=== PATIENT | female | born 1930 | race Caucasian/White ===

== ENCOUNTER 2017-06-14 10:01 | Observation (INO) | payer MEDICARE, OTHER ==
[~2017-06-14] VITALS: Ht 157.5 cm; Wt 54.3 kg
[2017-06-14 10:06] VITALS: BP 145/73; PULSE 79; RESP 16; TEMP 97.7; O2SAT 98
[2017-06-14] MEDS ORDERED: SODIUM CHLORIDE 0.9% FLUSH 10 ML FLUSH IV FLUSH PRN ×2 (11:00→17:00)
--- NOTE | 2017-06-14 11:04 | PD ---
HPI Chief Complaint: GI Complaint Time Seen by Provider: 11:00 Travel History International Travel<30 days: No Contact w/Intl Traveler<30days: No Traveled to known affect area: No History of Present Illness HPI 86-year-old female patient with history of hiatal hernia, complicated by hernia the stomach into the thoracic cavity, had bowel that was trapped and ended up having resection of the bowel, has had her stomach pulled down below the hernia site, is here today because she states that over the last 3 days she feels like things are getting stuck in her esophagus, is able to drink okay but feels like solid food is not going down, and she has to make herself gag to bring it back up. She denies any difficulty breathing, chest pains, or any other issues. Modifying Factors: None Associated Signs & Symptoms: Difficulty swallowing solids, no problems with liquids Risk Factors: Previous stomach surgery, hiatal hernia PFSH Social History Tobacco Use: No Allergies-Medications (Allergen,Severity, Reaction): Coded Allergies: No Known Allergies (Verified Allergy, Unknown, 06/14/17) Reported Meds & Prescriptions Reported Meds & Active Scripts Active Reported Vitamin D-1000 (Cholecalciferol) 1,000 Unit Tab 1,000 Units PO DAILY Aspir-81 (Aspirin) 81 Mg Tabdr Oxybutynin ER 24 HR (Oxybutynin Chloride) 10 Mg Tab 10 Mg PO DAILY Klor-Con 10 (Potassium Chloride) 10 Meq Tab 10 Meq PO DAILY Atorvastatin (Atorvastatin Calcium) 20 Mg Tab 20 Mg PO HS Amlodipine (Amlodipine Besylate) 10 Mg Tab 10 Mg PO DAILY Review of Systems Except as stated in HPI: all other systems reviewed are Neg Physical Exam Narrative GENERAL: Well-developed elderly female patient currently and mild distress. Awake and oriented 3. SKIN: Focused skin assessment warm/dry. HEAD: Atraumatic. Normocephalic. EYES: Pupils equal and round. No scleral icterus. No injection or drainage. ENT: No nasal bleeding or discharge. Mucous membranes pink and moist. NECK: Trachea midline. No JVD. CARDIOVASCULAR: Regular rate and rhythm. No murmur appreciated. RESPIRATORY: No accessory muscle use. Clear to auscultation. Breath sounds equal bilaterally. GASTROINTESTINAL: Abdomen soft, non-tender, nondistended. Hepatic and splenic margins not palpable. MUSCULOSKELETAL: No obvious deformities. No clubbing. No cyanosis. No edema. NEUROLOGICAL: Awake and alert. No obvious cranial nerve deficits. Motor grossly within normal limits. Normal speech. PSYCHIATRIC: Appropriate mood and affect; insight and judgment normal. Data Data Last Documented VS Vital Signs Date Time Temp Pulse Resp B/P (MAP) Pulse Ox O2 Delivery O2 Flow Rate FiO2 06/14/17 11:08 98 Room Air 06/14/17 10:06 97.7 79 16 145/73 (97) Orders Orders Complete Blood Count With Diff (06/14/17 11:00) Comprehensive Metabolic Panel (06/14/17 11:00) Lipase (06/14/17 11:00) Abdomen, Flat & Upright (06/14/17 ) Iv Access Insert/Monitor (06/14/17 11:00) Ecg Monitoring (06/14/17 11:00) Oximetry (06/14/17 11:00) Sodium Chloride 0.9% Flush (Ns Flush) (06/14/17 11:00) Electrocardiogram (06/14/17 11:00) Chest, Single Ap (06/14/17 11:00) Sodium Chlorid 0.9% 500 Ml Inj (Ns 500 M (06/14/17 12:00) Admit Order (Ed Use Only) (06/14/17 13:34) Labs Laboratory Tests Test 06/14/17 12:11 White Blood Count 6.3 TH/MM3 Red Blood Count 4.55 MIL/MM3 Hemoglobin 13.4 GM/DL Hematocrit 40.0 % Mean Corpuscular Volume 87.9 FL Mean Corpuscular Hemoglobin 29.5 PG Mean Corpuscular Hemoglobin Concent 33.6 % Red Cell Distribution Width 13.4 % Platelet Count 167 TH/MM3 Mean Platelet Volume 8.8 FL Neutrophils (%) (Auto) 76.1 % Lymphocytes (%) (Auto) 15.2 % Monocytes (%) (Auto) 7.1 % Eosinophils (%) (Auto) 0.8 % Basophils (%) (Auto) 0.8 % Neutrophils # (Auto) 4.7 TH/MM3 Lymphocytes # (Auto) 1.0 TH/MM3 Monocytes # (Auto) 0.4 TH/MM3 Eosinophils # (Auto) 0.1 TH/MM3 Basophils # (Auto) 0.1 TH/MM3 CBC Comment DIFF FINAL Differential Comment Blood Urea Nitrogen 11 MG/DL Creatinine 0.67 MG/DL Random Glucose 83 MG/DL Total Protein 7.0 GM/DL Albumin 3.5 GM/DL Calcium Level 9.1 MG/DL Alkaline Phosphatase 58 U/L Aspartate Amino Transf (AST/SGOT) 18 U/L Alanine Aminotransferase (ALT/SGPT) 15 U/L Total Bilirubin 2.3 MG/DL Sodium Level 143 MEQ/L Potassium Level 3.2 MEQ/L Chloride Level 107 MEQ/L Carbon Dioxide Level 22.4 MEQ/L Anion Gap 14 MEQ/L Estimat Glomerular Filtration Rate 84 ML/MIN Lipase 59 U/L [place] Medical Decision Making Medical Screen Exam Complete: Yes Emergency Medical Condition: Yes Medical Record Reviewed: Yes Interpretation(s) Laboratory Tests Test 06/14/17 12:11 Neutrophils (%) (Auto) 76.1 % (16.0-70.0) Total Bilirubin 2.3 MG/DL (0.2-1.0) Potassium Level 3.2 MEQ/L (3.5-5.1) Estimat Glomerular Filtration Rate 84 ML/MIN (>89) Lipase 59 U/L (73-393) Last 24 hours Impressions Chest X-Ray 06/14/17 1100 Signed Impressions: Service Date/Time: Wednesday, June 14, 2017 11:16 - CONCLUSION: No acute disease. Davy Coffey MD Abdomen X-Ray 06/14/17 0000 Signed Impressions: Service Date/Time: Wednesday, June 14, 2017 11:16 - CONCLUSION: No acute abnormality. Davy Coffey MD Differential Diagnosis Difficulty swallowing solid food: Dysphasia versus food impaction versus esophageal strictures versus hiatal hernia Narrative Course X-rays did not show any signs of hiatal hernia. However, her lab work was fairly unremarkable. However, patient is not able to eat solid foods, feels like he has to gag it up, and the case was discussed with field party manager Dr. Bales who would like to get the patient scoped today, wants the patient to be medically admitted. Case was discussed with Dr. Veliz for admission. N.p.o. Diagnosis Primary Impression: Dysphagia Admitting Information Admitting Physician Requests: Admit Masha Castellon MD Jun 14, 2017 11:04
[2017-06-14 11:08] VITALS: O2SAT 98
[2017-06-14] MEDS ORDERED: AMLO10TA2 PO (11:12)
[2017-06-14] MEDS ORDERED: VITA1000 PO (11:12)
[2017-06-14] MEDS ORDERED: OXYB10TA PO (11:12)
[2017-06-14] MEDS ORDERED: KLOR10TA PO (11:12)
[2017-06-14] MEDS ORDERED: ASPI81TA81 (11:12)
[2017-06-14] MEDS ORDERED: ATOR20TA15 PO (11:12)
--- NOTE | 2017-06-14 11:35 | RADRPT ---
EXAM DATE/TIME: 06/14/2017 11:16 [facility] COMPARISON: No previous studies available for comparison. INDICATIONS : Difficulty swallowing. Abdominal pain MEDICAL HISTORY : Hypertension. Hiatal hernia. SURGICAL HISTORY : Cholecystectomy. Colon resection. ENCOUNTER: Initial ACUITY: 3 days PAIN SCORE: 0/10 LOCATION: Abdomen FINDINGS: Supine and upright views of the abdomen were performed. The abdominal bowel gas pattern is normal. No air fluid levels are seen. No abnormal masses, calcifications, or organomegaly is seen. The visu alized lower lungs are clear. No evidence of free intraperitoneal gas. No scoliosis. Cholecystectomy . CONCLUSION: No acute abnormality. Davy Coffey MD on June 14, 2017 at 11:29 Board Certified Radiologist. This report was verified electronically.
--- NOTE | 2017-06-14 11:35 | RADRPT ---
EXAM DATE/TIME: 06/14/2017 11:16 [facility] COMPARISON: No previous studies available for comparison. INDICATIONS : Difficulty swallowing. Chest pain MEDICAL HISTORY : Hypertension. Hiatal hernia. SURGICAL HISTORY : Cholecystectomy. Colon resection. ENCOUNTER: Initial ACUITY: 3 days PAIN SCORE: 4/10 LOCATION: chest FINDINGS: A single view of the chest demonstrates the lungs to be symmetrically aerated without evidence of mas s, infiltrate or effusion. The cardiomediastinal contours are unremarkable. Osseous structures are intact. Dextroscoliosis. CONCLUSION: No acute disease. Davy Coffey MD on June 14, 2017 at 11:33 Board Certified Radiologist. This report was verified electronically.
[2017-06-14] MEDS ORDERED: SODIUM CHLORID 0.9% 500 ML INJ 500 ML IV ONE (12:00)
[2017-06-14 13:00] LABS: CHLORIDE 107 MEQ/L (98-107); SODIUM (NA) 143 MEQ/L (136-145)
[2017-06-14 13:04] LABS: ALBUMIN 3.5 GM/DL (3.4-5.0); BICARBONATE 22.4 MEQ/L (21.0-32.0); CALCIUM 9.1 MG/DL (8.5-10.1)
[2017-06-14 13:05] LABS: BLOOD UREA NITROGEN 11 MG/DL (7-18); GLUCOSE,RANDOM 83 MG/DL (74-106)
[2017-06-14 13:07] LABS: ALT (GPT) 15 U/L (10-53); AST (GOT) 18 U/L (15-37); CREATININE 0.67 MG/DL (0.50-1.00); GLOMERULAR FILTRATION RATE 84 ML/MIN (>89)
[2017-06-14 13:09] LABS: TOTAL BILIRUBIN ADULT 2.3 MG/DL (0.2-1.0)
[2017-06-14 13:10] LABS: ALKALINE PHOSPHATASE 58 U/L (45-117)
[2017-06-14 13:15] LABS: AUTOMATED NEUTROPHIL # 4.7 TH/MM3 (1.8-7.7); BASOPHIL # 0.1 TH/MM3 (0-0.2); BASOPHIL % 0.8 % (0.0-2.0); EOSINOPHIL # 0.1 TH/MM3 (0-0.4); EOSINOPHIL % 0.8 % (0.0-4.0); HEMOGLOBIN 13.4 GM/DL (11.6-15.3); LYMPH % 15.2 % (9.0-44.0); MEAN CELL VOLUME 87.9 FL (80.0-100.0); MEAN CORPUSCULAR HEMOGLOBIN 29.5 PG (27.0-34.0); MEAN CORPUSCULAR HGB CONC 33.6 % (32.0-36.0); MEAN PLATELET VOLUME 8.8 FL (7.0-11.0); MONO % 7.1 % (0.0-8.0); MONOCYTE # 0.4 TH/MM3 (0-0.9); NEUT % 76.1 % (16.0-70.0); PLATELET COUNT 167 TH/MM3 (150-450); RED BLOOD COUNT 4.55 MIL/MM3 (4.00-5.30); RED CELL DISTRIBUTION WIDTH 13.4 % (11.6-17.2); WHITE BLOOD COUNT 6.3 TH/MM3 (4.0-11.0)
[2017-06-14 13:45] VITALS: BP 136/70; PULSE 71; RESP 20; TEMP 97.6; O2SAT 99
[2017-06-14 14:18] VITALS: BP 136/70; PULSE 71; RESP 20; TEMP 97.6; O2SAT 99
[2017-06-14] MEDS ORDERED: POVIDONE IODINE 5% (ANTISEPSIS KIT) 4 APPLICATIONS EACH NARE PRN (14:30)
[2017-06-14] MEDS ORDERED: CHLORHEXIDINE GLUCONATE 2 % 1 PACK (2 CLOTHS) TOPICAL PRN (14:30)
[2017-06-14] MEDS ORDERED: SODIUM CHLORID 0.9% 500 ML IV PRN (14:30)
[2017-06-14] MEDS ORDERED: METOPROLOL TARTRATE 25 MG TAB PO PRN (14:30)
[2017-06-14] MEDS ORDERED: LACTATED RINGER'S 1000 ML IV PRN (14:30)
--- NOTE | 2017-06-14 15:08 | PD.PROCEDR ---
GI Procedure PROCEDURE PERFORMED EGD with biopsy INDICATION FOR PROCEDURE Abdominal pain, weight loss, dysphagia PROCEDURE: The procedure, risks and benefits were discussed with Ms. Merino and informed consent was obtained. Anesthesia sedated her with Diprivan. She was placed in the left lateral decubitus position. EGD: The Pentax videoscope was introduced through the oropharynx and advanced to the second portion of the duodenum under direct visualization. Retroflexion was performed in the stomach. 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
--- NOTE | 2017-06-14 15:42 | MB ---
cc: Jian Bales MD DATE: 06/14/2017 REASON FOR REFERRAL: Dysphagia. HISTORY OF PRESENT ILLNESS: Thank you for the consultation. An 86-year-old lady who has history of hiatal hernia with a Arin fundoplication repair. The patient also had ventral hernia in the past with incarcerated small bowel that required surgery. The patient was doing okay, but in the last few months, she was having difficulty eating and she felt that solid food is not going down properly and in the last few days, food is getting stuck in her esophagus. She is only able to drink water and her food is harder to swallow in the last few weeks to months with significant weight loss. because of the lack of significant food intake where she is down to 119. She originally used to be almost 180 about 2 years ago. The patient had an upper endoscopy and colonoscopy in the last 2 years according to her. No other complaint. No modifying factors. SOCIAL HISTORY: Negative for tobacco, drug or alcohol. ALLERGIES: NO KNOWN DRUG ALLERGIES. MEDICATIONS: Reviewed in the chart. REVIEW OF SYSTEMS: All 12-point negative except for the weight loss, the problem swallowing and occasional abdominal discomfort. PHYSICAL EXAMINATION: GENERAL: Alert, oriented, in no acute distress. VITAL SIGNS: Stable at this time. HEENT: Pupils round, reactive to light. NECK: Supple. CHEST: Clear to auscultation and percussion. CARDIAC: Regular rate and rhythm. No murmur or gallop. ABDOMEN: Soft, nondistended, nontender. Positive bowel sounds. No hepatosplenomegaly. The patient has surgical scar. EXTREMITIES: No edema, clubbing or cyanosis. NEUROLOGIC: Alert, oriented, intact. No abnormality as far as weakness. PSYCHOLOGIC: Appropriate mood, but a little bit poor historian. LABORATORY DATA: Normal CBC with white count 6.3, hemoglobin 13.4, platelet 167. Chemistry was completely normal. Lipase was 59, total bilirubin 2.3. ASSESSMENT AND PLAN: This is a pleasant 86-year-old lady who has dysphagia, abdominal discomfort, weight loss. I recommend doing upper endoscopy to make sure there is no foreign body fully entrapped in the esophagus. The patient will also need a CT scan of the abdomen and pelvis for the weight loss and for the abdominal discomfort. Further plan depends on the finding. I discussed with the patient and her family the procedure and complication. She is agreeable to have it done. This will be done today. MD ERIN Dawson/HERO , 03:03 PM , 03:41 PM
[2017-06-14 16:30] VITALS: BP 136/67; PULSE 70; RESP 18; TEMP 98.4; O2SAT 97
[2017-06-14] MEDS ORDERED: SENNOSIDES 8.6 MG TAB PO PRN (17:00)
[2017-06-14] MEDS ORDERED: ACETAMINOPHEN 325 MG TAB PO PRN (17:00)
[2017-06-14] MEDS ORDERED: ONDANSETRON HCL 4 MG/2 ML VIAL IVP PRN (17:00)
[2017-06-14] MEDS ORDERED: NALOXONE HCL 0.4 MG/ML AMP IV PUSH PRN (17:00)
--- NOTE | 2017-06-14 17:05 | HHI.HP ---
[facility] Service [facility] Primary Care Physician Non-Staff Admission Diagnosis Dysphagia/possible foreign body Diagnoses: Chief Complaint: Dysphagia weight loss Travel History International Travel<30 Days: No Contact w/Intl Traveler <30 Da: No Traveled to Known Affected Are: No History of Present Illness Patient is a 86-year-old female with a history of hiatal hernia status post Niesen fundoplication who comes in with 3 months of increased dysphasia and last 3 days having been worse. She says food gets stuck in her esophagus. He feels like solid food is stuck and she has been losing weight. She denies any shortness of breath or chest pain. There is been no actual vomiting. She has had multiple intestinal surgeries. Abdominal x-ray was unremarkable and labs are very stable. There is been no fever or chills. 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 Patient at this time is comfortable. She actually is to have a CAT scan later this evening. She has no local primary doctors for follow-up. Review of Systems Constitutional: DENIES: Diaphoretic episodes, Fatigue, Fever, Weight gain, Weight loss, Chills, Dizziness, Change in appetite, Night Sweats Endocrine: DENIES: Abnorml menstrual pattern, Heat/cold intolerance, Polydipsia , Polyuria, Polyphagia Eyes: DENIES: Blurred vision, Diplopia, Eye inflammation, Eye pain, Vision loss , Photosensitivity, Double Vision Ears, nose, mouth, throat: DENIES: Tinnitus, Hearing loss, Vertigo, Nasal discharge, Oral lesions, Throat pain, Hoarseness, Ear Pain, Running Nose, Epistaxis, Sinus Pain, Toothache, Odynophagia Respiratory: DENIES: Apneas, Cough, Snoring, Wheezing, Hemoptysis, Sputum production, Shortness of breath Cardiovascular: DENIES: Chest pain, Palpitations, Syncope, Dyspnea on Exertion , PND, Lower Extremity Edema, Orthopnea, Claudication Gastrointestinal: COMPLAINS OF: Difficulty Swallowing, DENIES: Abdominal pain, Black stools, Bloody stools, Constipation, Diarrhea, Nausea, Vomiting, Anorexia Genitourinary: DENIES: Abnormal vaginal bleeding, Dysmenorrhea, Dyspareunia, Sexual dysfunction, Urinary frequency, Urinary incontinence, Urgency, Hematuria , Dysuria, Nocturia, Vaginal discharge Musculoskeletal: DENIES: Joint pain, Muscle aches, Stiffness, Joint Swelling, Back pain, Neck pain Integumentary: DENIES: Abnormal pigmentation, Pruritus, Rash, Nail changes, Breast masses, Breast skin changes, Nipple discharge Hematologic/lymphatic: DENIES: Bruising, Lymphadenopathy Immunologic/allergic: DENIES: Eczema, Urticaria Neurologic: DENIES: Abnormal gait, Headache, Localized weakness, Paresthesias, Seizures, Speech Problems, Tremor, Poor Balance Except as stated in HPI: all other systems reviewed are Neg Past Family Social History Past Medical History Overactive bladder Hypertension Hyperlipidemia Dyspepsia/gastritis Past Surgical History Esophageal hernia repair Tonsillectomy Incarcerated hernia with bowel resection Single kidney Reported Medications EMR list reviewed Patient was taking Nexium but discontinued it for unknown reasons Allergies: Coded Allergies: No Known Allergies (Verified Allergy, Unknown, 06/14/17) Active Ordered Medications Reviewed in the EMR Family History Parents passed from unknown reasons Social History No current tobacco or alcohol, 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 SKIN: No rashes, ecchymoses or lesions. Cool and dry. HEAD: Atraumatic. Normocephalic. No temporal or scalp tenderness. EYES: Pupils equal round and reactive. Extraocular motions intact. No scleral icterus. No injection or drainage. ENT: Nose without bleeding, purulent drainage or septal hematoma. Throat without erythema, tonsillar hypertrophy or exudate. Uvula midline. Airway patent. NECK: Trachea midline. No JVD or lymphadenopathy. Supple, nontender, no meningeal signs. CARDIOVASCULAR: Regular rate and rhythm without murmurs, gallops, or rubs. RESPIRATORY: Clear to auscultation. Breath sounds equal bilaterally. No wheezes , rales, or rhonchi. GASTROINTESTINAL: Abdomen soft, non-tender, nondistended. No hepato-splenomegaly , or palpable masses. No guarding. MUSCULOSKELETAL: Extremities without clubbing, cyanosis, or edema. No joint tenderness, effusion, or edema noted. No calf tenderness. Negative Homans sign bilaterally. NEUROLOGICAL: Awake and alert. hard or hearing. Motor and sensory grossly within normal limits. Five out of 5 muscle strength in all muscle groups. Normal speech. Laboratory Laboratory Tests Test 06/14/17 12:11 White Blood Count 6.3 Red Blood Count 4.55 Hemoglobin 13.4 Hematocrit 40.0 Mean Corpuscular Volume 87.9 Mean Corpuscular Hemoglobin 29.5 Mean Corpuscular Hemoglobin Concent 33.6 Red Cell Distribution Width 13.4 Platelet Count 167 Mean Platelet Volume 8.8 Neutrophils (%) (Auto) 76.1 Lymphocytes (%) (Auto) 15.2 Monocytes (%) (Auto) 7.1 Eosinophils (%) (Auto) 0.8 Basophils (%) (Auto) 0.8 Neutrophils # (Auto) 4.7 Lymphocytes # (Auto) 1.0 Monocytes # (Auto) 0.4 Eosinophils # (Auto) 0.1 Basophils # (Auto) 0.1 CBC Comment DIFF FINAL Differential Comment Blood Urea Nitrogen 11 Creatinine 0.67 Random Glucose 83 Total Protein 7.0 Albumin 3.5 Calcium Level 9.1 Alkaline Phosphatase 58 Aspartate Amino Transf (AST/SGOT) 18 Alanine Aminotransferase (ALT/SGPT) 15 Total Bilirubin 2.3 Sodium Level 143 Potassium Level 3.2 Chloride Level 107 Carbon Dioxide Level 22.4 Anion Gap 14 Estimat Glomerular Filtration Rate 84 Lipase 59 Result Diagram: 06/14/17 1211 06/14/17 1211 Imaging Last Impressions Chest X-Ray 06/14/17 1100 Signed Impressions: Service Date/Time: Wednesday, June 14, 2017 11:16 - CONCLUSION: No acute disease. Davy Coffey MD Abdomen X-Ray 06/14/17 0000 Signed Impressions: Service Date/Time: Wednesday, June 14, 2017 11:16 - CONCLUSION: No acute abnormality. MD Mikki Malave VTE Risk Assessment Mikki VTE Risk Assessment: No/Low Risk (score <= 1) Caprini Risk Assessment Model Point Value = 1 Point Value = 2 Point Value = 3 Point Value = 5 Age 41-60 Minor surgery BMI > 25 kg/m2 Swollen legs Varicose veins or History of unexplained or recurrent spontaneous Oral contraceptives or hormone replacement Sepsis (< 1 month) Serious lung disease, including pneumonia (< 1 month) Abnormal pulmonary function Acute myocardial infarction Congestive heart failure (< 1 month) History of inflammatory bowel disease Medical patient at bed rest Age 61-74 Arthroscopic surgery Major open surgery (> 45 min) Laparoscopic surgery (> 45 min) Malignancy Confined to bed (> 72 hours) Immobilizing plaster cast Central venous access Age >= 75 History of VTE Family history of VTE Factor V Leiden Prothrombin [id number] Lupus anticoagulant Anticardiolipin antibodies Elevated serum homocysteine Heparin-induced thrombocytopenia Other congenital or acquired thrombophilia Stroke (< 1 month) Elective arthroplasty Hip, pelvis, or leg fracture Acute spinal cord injury (< 1 month) Prophylaxis Regimen Total Risk Factor Score Risk Level Prophylaxis Regimen 0-1 Low Early ambulation 2 Moderate Order ONE of the following: *Sequential Compression Device (SCD) *Heparin 5000 units SQ BID 3-4 Higher Order ONE of the following medications: *Heparin 5000 units SQ TID *Enoxaparin/Lovenox 40 mg SQ daily (WT < 150 kg, CrCl > 30 mL/min) *Enoxaparin/Lovenox 30 mg SQ daily (WT < 150 kg, CrCl > 10-29 mL/min) *Enoxaparin/Lovenox 30 mg SQ BID (WT < 150 kg, CrCl > 30 mL/min) AND/OR *Sequential Compression Device (SCD) 5 or more Highest Order ONE of the following medications: *Heparin 5000 units SQ TID (Preferred with Epidurals) *Enoxaparin/Lovenox 40 mg SQ daily (WT < 150 kg, CrCl > 30 mL/min) *Enoxaparin/Lovenox 30 mg SQ daily (WT < 150 kg, CrCl > 10-29 mL/min) *Enoxaparin/Lovenox 30 mg SQ BID (WT < 150 kg, CrCl > 30 mL/min) AND *Sequential Compression Device (SCD) Assessment and Plan Problem List: (1) Dysphagia ICD Code: R13.10 - Dysphagia, unspecified Status: Acute Plan: Severe with malnutrition and weight loss ppi Status post endoscopy with Esqueda's esophagitis f/u ct abd pelvis Assessment and Plan We will replace potassium Continue home medications for hypertension and overactive bladder Discussed Condition With Daughter Virginia phone #[phone] Selina Veliz MD Jun 14, 2017 17:05
[2017-06-14] MEDS ORDERED: DIATRIZOATE MEGLUM/DIATRIZOATE SOD 9 ML CUP PO ONE (17:15)
[2017-06-14] MEDS: SODIUM CHLOR 0.9% 1000 ML INJ 1,000 ML IV SCH (18:43)
[2017-06-14] MEDS: PANTOPRAZOLE SODIUM 40 MG VIAL IV PUSH SCH (18:50)
--- NOTE | 2017-06-14 19:17 | EKG ---
Date Performed: 06/14/2017 Time Performed: 11:06:10 PTAGE: 86 years EKG: Sinus rhythm VOLTAGE CRITERIA FOR LVH ABNORMAL ECG NO PREVIOUS TRACING DOCTOR: Ha Sweet Interpretating Date/Time 06/14/2017 19:15:11
[2017-06-14 20:00] VITALS: BP 129/62; PULSE 79; RESP 20; TEMP 99.1; O2SAT 97
[2017-06-14] MEDS: SODIUM CHLORIDE 0.9% FLUSH 10 ML FLUSH IV FLUSH SCH (20:33)
[2017-06-14] MEDS ORDERED: ATORVASTATIN 20 MG TAB PO SCH (21:00)
[2017-06-14] MEDS ORDERED: IODIXANOL 320 MG/ML 10 ML VIAL (for Rad CT) IVCONTRAST ONE (22:06)
--- NOTE | 2017-06-14 22:38 | RADRPT ---
EXAM DATE/TIME: 06/14/2017 21:43 [facility] COMPARISON: No previous studies available for comparison. INDICATIONS : Abdominal pain, dysphagia and weight loss. IV CONTRAST: 45 cc Visipaque (iodixanol) IV ORAL CONTRAST: Prescribed oral contrast ingested. RADIATION DOSE: 8.87 CTDIvol (mGy) MEDICAL HISTORY : Hypertension. Hernia, hiatal. Gastroesophageal reflux disease. SURGICAL HISTORY : Cholecystectomy. Nephrectomy, left.Colon resection.Ventral hernia repair. ENCOUNTER: Initial ACUITY: 2 months PAIN SCALE: 2/10 LOCATION: Abdomen TECHNIQUE: Volumetric scanning of the abdomen and pelvis was performed. Using automated exposure control and ad justment of the mA and/or kV according to patient size, radiation dose was kept as low as reasonably achievable to obtain optimal diagnostic quality images. DICOM format image data is available electro nically for review and comparison. FINDINGS: There is linear scarring at the lung bases. No significant effusion. Small hiatal hernia. No acute findings in the liver and spleen. Right-sided parapelvic cysts present in addition to mild h ydronephrosis. Left kidney has been removed. Rotatory levoscoliosis. No pelvic masses or free fluid. Bladder mildly distended. No acute bony abnormality. CONCLUSION: 1. Mild right-sided hydronephrosis and right renal parapelvic cysts. Postoperative left nephrectomy p artial colonic resection. Cholecystectomy. 2. No bowel obstruction. Small hiatal hernia. 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 Dung Spann MD on June 14, 2017 at 22:33 Board Certified Radiologist. This report was verified electronically.
[2017-06-15] VITALS: BP 122/59; PULSE 75; RESP 20; TEMP 98.4; O2SAT 96
[2017-06-15] MEDS: PANTOPRAZOLE SODIUM 40 MG VIAL IV PUSH SCH (05:00)
[2017-06-15 07:48] LABS: AUTOMATED NEUTROPHIL # 4.7 TH/MM3 (1.8-7.7); BASOPHIL % 0.5 % (0.0-2.0); EOSINOPHIL # 0.1 TH/MM3 (0-0.4); EOSINOPHIL % 1.5 % (0.0-4.0); HEMATOCRIT 35.2 % (35.0-46.0); HEMOGLOBIN 12.4 GM/DL (11.6-15.3); LYMPH % 18.1 % (9.0-44.0); LYMPHOCYTE # 1.2 TH/MM3 (1.0-4.8); MEAN CELL VOLUME 87.9 FL (80.0-100.0); MEAN CORPUSCULAR HEMOGLOBIN 30.9 PG (27.0-34.0); MEAN CORPUSCULAR HGB CONC 35.1 % (32.0-36.0); MEAN PLATELET VOLUME 8.6 FL (7.0-11.0); MONO % 6.3 % (0.0-8.0); MONOCYTE # 0.4 TH/MM3 (0-0.9); NEUT % 73.6 % (16.0-70.0); PLATELET COUNT 161 TH/MM3 (150-450); RED BLOOD COUNT 4.01 MIL/MM3 (4.00-5.30); RED CELL DISTRIBUTION WIDTH 13.8 % (11.6-17.2); WHITE BLOOD COUNT 6.4 TH/MM3 (4.0-11.0)
[2017-06-15 08:00] VITALS: BP 132/65; PULSE 77; RESP 16; TEMP 98.7; O2SAT 96
[2017-06-15 08:05] LABS: BICARBONATE 19.3 MEQ/L (21.0-32.0); CALCIUM 8.2 MG/DL (8.5-10.1); CREATININE 0.53 MG/DL (0.50-1.00)
[2017-06-15] MEDS ORDERED: POTASSIUM CHLORIDE 10 MEQ CONTROLLED RELEASE TAB PO ONE (08:30)
[2017-06-15] MEDS: POTASSIUM CHLOR 20 MEQ PREMIX 100 ML IV SCH ×2 (08:53→11:00)
[2017-06-15] MEDS ORDERED: TOLTERODINE TARTRATE 4 MG CAP LA PO SCH (09:00)
[2017-06-15] MEDS: SODIUM CHLORIDE 0.9% FLUSH 10 ML FLUSH IV FLUSH SCH (09:00)
[2017-06-15 09:19] LABS: MAGNESIUM 1.9 MG/DL (1.5-2.5)
[2017-06-15] MEDS: SODIUM CHLOR 0.9% 1000 ML INJ 1,000 ML IV SCH (10:43)
[2017-06-15] MEDS ORDERED: PROT40TA PO (11:26)
--- NOTE | 2017-06-15 11:28 | HHI.DCPOC ---
Discharge Care Plan Diagnosis: (1) Esophagitis (2) Dysphagia Goals to Promote Your Health * To prevent worsening of your condition and complications * To maintain your health at the optimal level Directions to Meet Your Goals Take your medications as prescribed Follow your dietary instruction Follow activity as directed Keep your appointments as scheduled Take your immunizations and boosters as scheduled If your symptoms worsen call your PCP, if no PCP go to Urgent Care Center or Emergency Room Smoking is Dangerous to Your Health. Avoid second hand smoke Call the 24-hour hour crisis hotline for domestic abuse at Selina Veliz MD Jun 15, 2017 11:28
--- NOTE | 2017-06-15 11:30 | HHI.DS ---
Discharge Summary Admission Date Jun 14, 2017 at 13:34 Discharge Date: Jun 15, 2017 Admitting Diagnosis Dysphagia/possible foreign body (1) Dysphagia ICD Code: R13.10 - Dysphagia, unspecified Status: Acute Procedures Upper endoscopy Brief History - From Admission Patient is a 86-year-old female with a history of hiatal hernia status post Niesen fundoplication who comes in with 3 months of increased dysphasia and last 3 days having been worse. She says food gets stuck in her esophagus. He feels like solid food is stuck and she has been losing weight. She denies any shortness of breath or chest pain. There is been no actual vomiting. She has had multiple intestinal surgeries. Abdominal x-ray was unremarkable and labs are very stable. There is been no fever or chills. 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 Patient at this time is comfortable. She actually is to have a CAT scan later this evening. She has no local primary doctors for follow-up. CBC/BMP: 06/15/17 0650 06/15/17 0650 Significant Findings Laboratory Tests Test 06/14/17 12:11 06/15/17 06:50 Neutrophils (%) (Auto) 76.1 % (16.0-70.0) 73.6 % (16.0-70.0) Total Bilirubin 2.3 MG/DL (0.2-1.0) Potassium Level 3.2 MEQ/L (3.5-5.1) 2.8 MEQ/L (3.5-5.1) Estimat Glomerular Filtration Rate 84 ML/MIN (>89) Lipase 59 U/L (73-393) Random Glucose 60 MG/DL (74-106) Calcium Level 8.2 MG/DL (8.5-10.1) Chloride Level 109 MEQ/L (98-107) Carbon Dioxide Level 19.3 MEQ/L (21.0-32.0) Imaging Last Impressions Chest X-Ray 06/14/17 1100 Signed Impressions: Service Date/Time: Wednesday, June 14, 2017 11:16 - CONCLUSION: No acute disease. Davy Coffey MD Abdomen/Pelvis CT 06/14/17 0000 Signed Impressions: Service Date/Time: Wednesday, June 14, 2017 21:43 - CONCLUSION: 1. Mild right-sided hydronephrosis and right renal parapelvic cysts. Postoperative left nephrectomy partial colonic resection. Cholecystectomy. 2. No bowel obstruction. Small hiatal hernia. 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 Dung Spann MD Abdomen X-Ray 06/14/17 0000 Signed Impressions: Service Date/Time: Wednesday, June 14, 2017 11:16 - CONCLUSION: No acute abnormality. Davy Coffey MD PE at Discharge GENERAL: This is a well-nourished, well-developed patient, in no apparent distress. CARDIOVASCULAR: Regular rate and rhythm without murmurs, gallops, or rubs. RESPIRATORY: Clear to auscultation. Breath sounds equal bilaterally. No wheezes , rales, or rhonchi. GASTROINTESTINAL: Abdomen soft, non-tender, nondistended. Normal active bowel sounds MUSCULOSKELETAL: Extremities without clubbing, cyanosis, or edema. NEURO: Alert & Oriented x4 to person, place, time, situation. Moves all ext x4 Pt update on day of discharge Patient doing well today. Tolerating diet without difficulty. Discharge plans discussed with patient and family Hospital Course This patient is a 86-year-old female complaining of dysphasia. Patient did have esophagitis and concern for Esqueda's esophagus on endoscopy. She was instructed to resume her PPI which she had discontinued. She is also instructed to follow up with outpatient Her potassium was replaced Pt Condition on Discharge: Good Discharge Disposition: Discharge Home Discharge Time: <= 30 minutes Discharge Instructions DIET: Follow Instructions for: As Tolerated, No Restrictions Activities you can perform: Regular-No Restrictions Follow up Referrals: Gastroenterology with Jian Bales MD New Medications: Pantoprazole (Protonix) 40 Mg Tab 40 MG PO DAILY for Reflux, #30 TAB 0 Refills Continued Medications: Amlodipine (Amlodipine) 10 Mg Tab 10 MG PO DAILY for Blood Pressure Management, #30 TAB [address] (Aspir-81) 81 Mg Tabdr Atorvastatin (Atorvastatin) 20 Mg Tab 20 MG PO HS for Cholesterol Management, #30 TAB 0 Refills Cholecalciferol (Vitamin D-1000) 1,000 Unit Tab 1000 UNITS PO DAILY for Nutritional Supplement, #1 BOTTLE 0 Refills Oxybutynin ER 24 HR (Oxybutynin ER 24 HR) 10 Mg Tab 10 MG PO DAILY for Overactive Bladder, TAB 0 Refills Potassium Chloride ER (Klor-Con 10) 10 Meq Tab 10 MEQ PO DAILY for Electrolyte Replacement, #30 TAB 0 Refills Selina Veliz MD Jun 15, 2017 11:30
[2017-06-15 12:00] VITALS: BP 118/54; PULSE 72; RESP 16; TEMP 97.1; O2SAT 98
[2017-06-15] MEDS ORDERED: LIDOCAINE HCL 1% PF 5 ML SYRINGE OTHER ONE (12:00)
[2017-06-15] MEDS ORDERED: PROPOFOL 200 MG/20 ML AMP IV ONE (12:00)
== END 2017-06-15 12:50 | disposition home or self-care (01) ==
LOC: PHED 10:01 → PHEDA 13:34 → PH3B 16:25
PROVIDERS: ADMIT Hospitalist; ATTEND Hospitalist
DX: R13.10 Dysphagia, unspecified (principal); K44.9 Diaphragmatic hernia without obstruction or gangrene; Z79.899 Other long term (current) drug therapy; R94.31 Abnormal electrocardiogram [ECG] [EKG]; R10.9 Unspecified abdominal pain; R63.4 Abnormal weight loss; B19.20 Unspecified viral hepatitis C without hepatic coma; K22.9 Disease of esophagus, unspecified; I10 Essential (primary) hypertension; K21.9 Gastro-esophageal reflux disease without esophagitis; N13.30 Unspecified hydronephrosis; N28.1 Cyst of kidney, acquired
CPT/HCPCS: 00731; 43239; 71045; 74019; 74177; 80048; 80053; 83690; 83735; 85025; 88305; 93005; 96361; 96365; 96366; 96375; 96376; 99285; C9113; G0378; J3480; J7030; J7040; Q9963; Q9967